=== PATIENT | female | born 2005 | race Two or more races ===

== ENCOUNTER 2025-03-03 10:07 | Emergency (ER) | payer MEDICAID ==
[~2025-03-03] VITALS: Ht 152.4 cm; Wt 59.0 kg
[2025-03-03 10:59] LABS: PREGNANCY TEST URINE QUAL NEGATIVE (NEGATIVE)
[2025-03-03 12:56] VITALS: BP 115/68; TEMP 98.9; O2SAT 99
== END 2025-03-03 12:57 | disposition home or self-care (01) ==
LOC: ER 10:19
DX: Z13.9 Encounter for screening, unspecified (principal)
CPT/HCPCS: 84703-TC